=== PATIENT | male | born 1960 | race Caucasian/White ===

== ENCOUNTER 2018-12-13 13:41 | Outpatient (CLI) | payer OTHER ==
[~2018-12-13] VITALS: Ht 160 cm; Wt 78.9 kg
--- NOTE | 2018-12-13 15:08 | GI Initial Consult Note ---
History of Present Illness General Date patient seen: Dec 13, 2018 Time patient seen: 15:04 Referring physician: HMO Reason for Consultation: Screening colonoscopy Present Illness HPI Is a 58-year-old male, history of depression hyperlipidemia presents today for routine colonoscopy screening. The patient denies any GI symptoms; denies any abdominal pain, nausea vomiting or diarrhea. Patient has no history of endoscopic or colonoscopy. Denies any unintentional weight loss or changes in dietary habits. No signs of abuse or neglect. Patient is not fall risk. Patient denies being on any medication. Med list reviewed/reconciled: Yes Patient History History Provided By: Patient, Medical Record [facility] Narrative Depression Cholesterol Past Surgical History: other - Had surgery on the testicle at age 9 Family History Narrative Brother with renal cancer Father with possible cancer Social History Narrative EtOH approximately 1 time a month Tobacco, patient quit in 2001 Denies any drug use Uses caffeine Review of Systems All Other Systems: negative except mentioned in HPI Physical Exam Temperature 98.7 Blood pressure 147/98 Pulse 78 95% room air Height 5 3 Weight 174 pounds Sp02 EP Interpretation: reviewed, normal General Appearance: well appearing, no apparent distress, alert Head: normocephalic EENT: PERRL/EOMI, normal ENT inspection Neck: supple Respiratory: normal breath sounds, no respiratory distress Cardiovascular: normal rate Gastrointestinal: normal inspection, non tender, soft, normal bowel sounds, non -distended Rectal: deferred Genitourinary: deferred Musculoskeletal: normal inspection, back normal Neurologic: normal inspection, alert, oriented x3, responsive Psychiatric: normal inspection, judgement/insight normal, memory normal Skin: normal inspection, normal color, no rash, warm/dry, palpation normal, well hydrated Lymphatic: normal inspection, no adenopathy GI: Plan Problems: (1) Encounter for screening colonoscopy (2) Depression (3) Hyperlipidemia Plan Colonoscopy to be scheduled pending PA, will contact patient. - CLD & (Nulytely/Suprep/Movi-Prep) prep instructions given and acknowledged by patient. - NPO @ [place] day prior procedure explained. Will follow with additional recs post procedure. Seen with Dr. De Los Santos. Thank you for this patient referral. The patient was seen and examined at bedside and all new and available data was reviewed in the patients chart. I agree with the above findings, impression and plan. (Patient seen earlier today. Signature stamp does not reflect patient encounter time.). - MD [facility] Dec 13, 2018 15:08
[2018-12-13] MEDS ORDERED: no medication (15:26)
[2018-12-13 15:28] VITALS: BP 147/98
== END 2018-12-13 15:41 | disposition home or self-care (01) ==
LOC: PAN 13:41
DX: E78.5 Hyperlipidemia, unspecified (principal); F32.9 Major depressive disorder, single episode, unspecified; E78.00 Pure hypercholesterolemia, unspecified
CPT/HCPCS: 99202